=== PATIENT | female | born 1980 | race Two or more races ===

== ENCOUNTER 2023-12-31 18:56 | Emergency (ER) | payer OTHER ==
[~2023-12-31] VITALS: Ht 175.3 cm; Wt 72.7 kg
[2023-12-31 19:01] VITALS: BP 133/79; PULSE 100; RESP 20; O2SAT 98
== END 2023-12-31 21:01 | disposition left against medical advice (07) ==
LOC: EDBD 18:56 → ER 18:56
DX: R07.9 Chest pain, unspecified (principal); Z53.21 Procedure and treatment not carried out due to patient leaving prior to being seen by health care provider
CPT/HCPCS: 93005